=== PATIENT | female | born 1985 | race Caucasian/White ===

== ENCOUNTER 2019-11-26 17:09 | Observation (INO) ==
[2019-11-26] MEDS ORDERED: *HR* FentaNYL (PF) 100 MCG/2 ML VIAL IVP ONE (17:27)
[2019-11-26] MEDS ORDERED: Ondansetron 4 MG/2 ML VIAL IVP ONE ×2 (17:27→19:09)
[2019-11-26] MEDS ORDERED: Ringers Solution, Lactated 1,000 ML IVC ONE (18:03)
[2019-11-26 18:22] LABS: Basophils # 0.1 K/mcL (0.0-0.2); Basophils % 1.1 %; Eosinophils # 0.3 K/mcL (0.0-0.6); Eosinophils % 3.4 %; Hematocrit 40.2 % (35.3-44.9); Immature Granulocytes % 0.1 % (0-4); Lymphocytes # 3.2 K/mcL (0.6-4.6); Lymphocytes % 43.8 %; Mean Corpuscular HGB Conc 32.3 g/dL (31.6-35.5); Mean Corpuscular Hemoglobin 30.6 pg (28.0-33.3); Mean Corpuscular Volume 94.6 fL (83.0-100.0); Mean Platelet Volume 8.5 fL (9.4-12.4); Monocytes # 0.4 K/mcL (0.0-1.3); Neutrophils # 3.3 K/mcL (1.6-8.9); Platelet Count 494 K/mcL (140-400); Red Blood Count 4.25 M/mcL (3.82-4.97); Red Cell Distribution Width 13.2 % (11.5-14.5); Segmented Neutrophils % 45.6 %; White Blood Count 7.3 K/mcL (4.3-11.1)
[2019-11-26] MEDS ORDERED: *HR* HYDROmorphone PF 0.5 MG/0.5 ML SYRINGE IVP PRN (19:09)
[2019-11-26] MEDS ORDERED: *HR* Promethazine 25 MG/ML VIAL IVP PRN (19:09)
[2019-11-26] MEDS ORDERED: *HR* OxyCODONE Immed Rel 5 MG TABLET PO PRN (19:09)
[2019-11-26] MEDS ORDERED: Bupivacaine/EPI 1:200k 0.25%PF 10 ML VIAL INFILT ONE (19:10)
[2019-11-26] MEDS ORDERED: *HR* Belladonna Alkaloids/Opium 30 MG RECTAL SUPPOSITORY RC ONE (19:10)
[2019-11-26] MEDS ORDERED: Lidocaine HCL 4 ML Topical Solution (Laryng-O-Jet Kit Sterile Pak) TP ONE (19:20)
[2019-11-26] MEDS ORDERED: Lidocaine -MPF 2% 2 ML VIAL ONE (19:20)
[2019-11-26] MEDS ORDERED: *HR* Midazolam HCl 2 MG/2 ML VIAL ONE (19:20)
[2019-11-26] MEDS ORDERED: *HR* FentaNYL (PF) 100 MCG/2 ML VIAL ONE ×2 (19:20→20:31)
[2019-11-26] MEDS ORDERED: *HR* Propofol 200 MG/20 ML VIAL IVP ONE (19:20)
[2019-11-26] MEDS ORDERED: *HR* Rocuronium Bromide 50 MG/5 ML VIAL ONE (19:20)
[2019-11-26] MEDS ORDERED: Acetaminophen IV 1,000 MG/100 ML INFUS..BTL ONE (19:26)
[2019-11-26] MEDS ORDERED: Albuterol 2.5 MG/3 ML NEBULIZER ONE (19:35)
[2019-11-26] MEDS ORDERED: Albuterol 2.5 MG/3 ML NEBULIZER IH ONE (19:36)
[2019-11-26] MEDS ORDERED: Ondansetron 4 MG/2 ML VIAL ONE (20:24)
[2019-11-26] MEDS ORDERED: Dexamethasone 4 MG/ML VIAL ONE (20:24)
[2019-11-26] MEDS ORDERED: flumazeniL 0.5 MG/5 ML VIAL IVP ONE (20:30)
[2019-11-26] MEDS ORDERED: Neostigmine Methylsulfate 3 MG/3 ML SYRINGE ONE (21:05)
[2019-11-26] MEDS ORDERED: Ringers Solution, Lactated 1,000 ML ONE (21:52)
[2019-11-26] MEDS ORDERED: *HR* HYDROcodone/Acet 5/325 mg TABLET PO ONE (22:19)
[2019-11-27 01:25] VITALS: BP 130/91
== END 2019-11-27 02:25 | disposition home or self-care (01) ==
LOC: 1NENUOBS 17:09 → EMEROOARM 17:09 → 1NENUOBS 19:25
PROVIDERS: ADMIT Obstetrics & Gynecology; ATTEND Obstetrics & Gynecology